=== PATIENT | male | born 1985 | race Caucasian/White ===

== ENCOUNTER 2025-09-15 18:49 | Emergency (ER) | payer BC, SELFPAY ==
[2025-09-15 19:01] VITALS: BP 161/105; PULSE 97; RESP 20; TEMP 36.3; O2SAT 98; BMI 24.3
--- NOTE | 2025-09-15 19:38 | ED_ITS ---
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 He states that it started in the center of his vision where he had some flickering lights that spread out from there. He is now reporting a mild right-sided headache. He does not have any neurologic de ficits. He has not had any symptoms like this in the past except 1 time when he did have a migraine-type headache and some other type of visual changes. Related Data Home Medications ?Medication ?Instructions ?Recorded ?Confirmed No Known Home Medications 09/11/2508/21 Allergies Allergy/AdvReac Type Severity Reaction Status Date / Time No Known Drug Allergies Allergy Verified 09/15/25 19:01 Review of Systems Status of ROS: Reports: 10 or more systems reviewed and unremarkable except as noted in History and below Narrative: Constitutional: No fevers, no weight gain or loss. Eyes: No discharge. Vision changes as described above. HENT: No congestion, no sore throat, no ear pain. Cardiovascular: No chest pain, no palpitations. Respiratory: No shortness of breath, no wheezes, no cough. Gastrointestinal: No abdominal pain, no vomiting, no diarrhea. Genitourinary: No dysuria, no hematuria. Musculoskeletal: Normal range of motion. Skin: No rashes, no pruritis. Neurological: No dizziness, weakness, sensory change, speech change. Endo/Heme/Allergies: No bruising or bleeding. No polydipsia. Pysch: no suicidality, no anxiety, no insomnia. All other systems reviewed and are negative. Exam Narrative: Exam Narrative: Constitutional: Well-developed, well-nourished, no acute distress. HEENT: Normocephalic, atraumatic. Funduscopic exam appears normal bilaterally with nondilated views. Neck: Normal range of motion. Nontender. Supple. Heart: Intact distal pulses. Lungs: No chest discomfort. No wheezes, rhonchi, or rales. Abdomen: Nontender. Back: Normal range of motion. Extremities: Normal range of motion. No injury. Skin: Intact. No rash. Warm. No erythema or pallor. Neurologic: No altered sensation. No weakness. Alert and oriented. Psychiatric: No suicidality. No anxiety or depression. No insomnia. Nursing notes and vitals signs are reviewed. Const: Vital Signs, click to edit/add: Vital Signs - 24 hr 09/15/25 19:01 Temperature 97.4 F L Pulse Rate [Pulse Oximeter] 97 Respiratory Rate 20 Blood Pressure [Ri ght Upper Arm] 161/105 H Pulse Oximetry 98 Oxygen Delivery Me thod Room Air Course Vital Signs Vital signs: Initial Vital Signs Temperature 97.4 F L 09/15/25 19:01 Temperature Source Temporal Artery Scan 09/15/25 19:01 Pulse Rate 97 09/15/25 19:01 Respiratory Rate 20 09/15/25 19:01 Blood Pressure 161/105 H 09/15/25 19:01 Blood Pressure Mean 123 H 09/15/25 19:01 Pulse Oximetry 98 09/15/25 19:01 Oxygen Delivery Method Room Air 09/15/25 19:01 Vital Signs Temperature 97.4 F L 09/15/25 19:01 Pulse Rate 97 09/15/25 19:01 Respiratory Rate 20 09/15/25 19:01 Blood Pressure 161/105 H 09/15/25 19:01 Pulse Oximetry 98 09/15/25 19:01 Oxygen Delivery Method Room Air 09/15/25 19:01 Temperature 97.4 F L 09/15/25 19:01 Pulse Rate 97 09/15/25 19:01 Respiratory Rate 20 09/15/25 19:01 Blood Pressure 161/105 H 09/15/25 19:01 Pulse Oximetry 98 09/15/25 19:01 Oxygen Delivery Method Room Air 09/15/25 19:01 MDM - Eye Problem MDM Narrative Medical decision making narrative: This patient has visual changes that are typical of scintillating scotoma. I did show him images from the web of various reddish ins of what this can look like and he was able to identify with some of them. His symptoms seem to be evolving and resolving at the same time that he is developing a mild right-sided headache. This may be related to a migraine variant. I did discuss lab and imaging options and these were declined in a process of shared decision making. He is not showing any neurologic deficits. I did describe signs and symptoms that would indicate need for return re-evaluation. Discharge Plan Discharge Clinical Impression: Scintillating scotoma, Migraine Patient Disposition: Home, Self-Care Condition: Stable Additional Instructions: Continue current plans. Activity as tolerated. Use [id number] medicines as needed and directed. Follow up with MD return if symptoms are persistent or worsening. Prescriptions: No Action No Known Home Medications Follow Up/Referrals: Provider,Not a Local [Primary Care Provider, Family Practice] Stand Alone Forms: [employer] Info Instructions
== END 2025-09-15 19:55 | disposition home or self-care (01) ==
PROVIDERS: Emergency Provider Emergency Medicine Emergency Medical Services
DX: H53.121 Transient visual loss, right eye (principal); G43.909 Migraine, unspecified, not intractable, without status migrainosus
CPT/HCPCS: 99282; 99283; 99284